=== PATIENT | female | born 1955 | race Caucasian/White ===

== ENCOUNTER 2024-09-26 11:52 | Outpatient (CLI) | payer OTHER, SELFPAY | END 2024-09-26 11:53 | disposition home or self-care (01) | LOC: NFLDUCREF 12:01 | PROVIDERS: Visit Provider Physician Assistant Surgical | DX: R21 Rash and other nonspecific skin eruption (principal); Z11.8 Encounter for screening for other infectious and parasitic diseases | CPT/HCPCS: 86618 ==